=== PATIENT | female | born 1985 | race Caucasian/White ===

== ENCOUNTER → 2025-07-09 | Emergency (ER) | payer BC, MEDICAID ==
[~2025-07-09] VITALS: Ht 149.9 cm; Wt 79.4 kg
[~2025-07-09] MED LIST: ACETAMINOPHEN ES 500 MG TABLET ONE
[2025-07-09 18:52] VITALS: BP 123/89; TEMP 98.7; O2SAT 97
[2025-07-09] MEDS: ACETAMINOPHEN ES 500 MG TABLET PO ONE (19:21)
== END | disposition home or self-care (01) ==
LOC: ER 18:51
DX: S93.401A Sprain of unspecified ligament of right ankle, initial encounter (principal); S93.601A Unspecified sprain of right foot, initial encounter; Z88.0 Allergy status to penicillin; W18.42XA Slipping, tripping and stumbling without falling due to stepping into hole or opening, initial encounter; Y93.68 Activity, volleyball (beach) (court); Y92.39 Other specified sports and athletic area as the place of occurrence of the external cause; Y99.9 Unspecified external cause status
CPT/HCPCS: 73610-TC; 73630-TC